=== PATIENT | female | born 1975 | race Caucasian/White ===

== ENCOUNTER → 2022-04-13 | Day surgery (SDC) | payer OTHER ==
[~2022-04-13] VITALS: Ht 149.9 cm; Wt 94.3 kg
[~2022-04-13] MED LIST: CLARITIN10 M2 PO; DAILY VALUE1 EACH PO; IBUPROFEN800 M1 PO; NEXIUM40 MG PO; NORLYDA0.35 MG PO
[2022-04-13 08:35] LABS: HCG (URINE) SCREEN NEGATIVE (NEGATIVE)
== END | disposition home or self-care (01) ==
LOC: FAS 08:23
PROVIDERS: Obstetrics & Gynecology
DX: N93.9 Abnormal uterine and vaginal bleeding, unspecified (principal); N84.0 Polyp of corpus uteri; D25.2 Subserosal leiomyoma of uterus; K21.9 Gastro-esophageal reflux disease without esophagitis; G47.33 Obstructive sleep apnea (adult) (pediatric)
CPT/HCPCS: 84703; J1100; J1885; J2250; J2405; J2704; J3010; J7120